=== PATIENT | male | born 1965 | race Caucasian/White ===

== ENCOUNTER 2016-10-31 07:55 | Day surgery (SDC) | payer BC ==
[~2016-10-31 07:55] MED LIST: PROPOFOL INJ 200 MG/20 ML VIAL IV ONE
[2016-10-31 10:43] VITALS: BP 110/77
--- NOTE | 2016-10-31 14:09 | Operative Report ---
Operative Report DATE OF SURGERY: 10/31/16 Operative Report: The risks, benefits and alternatives of the procedure including risks of bleeding, perforation requiring surgery explained to the patient detail and informed consent was obtained. Patient was brought back to the endoscopy suite placed in the left, lateral decubital position. A rectal examination is done which did not reveal any masses, tears or fissures. An Olympus endoscope was inserted into the patient's rectum. It is carefully guided all the way to the cecum. The cecum was identified by the usual anatomical landmarks including the ileocecal valve as well as appendiceal office. Photodocumentation was obtained. Prep was good. The scope was then sequentially pulled back for the rest segments of the colon including the ascending colon, hepatic flexure, transverse colon, splenic flexure, descending colon and finding to the rectosigmoid portions of the colon. Retroflexion maneuver was performed. PREOPERATIVE DIAGNOSIS: Personal history of polyps. POSTOPERATIVE DIAGNOSIS: Noted to have a cecal polyp, status post snare polypectomy. Due to the sessile nature of the polyp is essentially ablated in situ. OPERATION: Colonoscopy with snare polypectomy. SURGEON: BO FONSECA ANESTHESIA: LMAC TISSUE REMOVED OR ALTERED: No tissue retrieved. COMPLICATIONS: None. ESTIMATED BLOOD LOSS: None. INTRAOPERATIVE FINDINGS: No masses, AVMs, diverticulosis noted. mild internal hemorrhoids PROCEDURE: Patient tolerated the procedure well. No immediate postprocedure complications are noted. Patient discharged in good condition. Discharge date 10/31/2016. Discharge diet: Regular. Discharge activity: Regular. 2-3 week follow-up to discuss findings. We will wait on biopsies. 3-5 year surveillance colonoscopy. Patient is instructed to call the office or proceed to the emergency room should there be any further problems or questions.
== END 2016-10-31 10:40 | disposition home or self-care (01) ==
LOC: END 07:55
PROVIDERS: ATTEND Internal Medicine Gastroenterology
PROC: 0D5H8ZZ Destruction of Cecum, Via Natural or Artificial Opening Endoscopic (ICD-10-PCS; principal; 2016-10-31 10:00)
DX: D12.0 Benign neoplasm of cecum (principal); K64.8 Other hemorrhoids; D68.51 Activated protein C resistance; E78.5 Hyperlipidemia, unspecified; Z79.82 Long term (current) use of aspirin; Z85.828 Personal history of other malignant neoplasm of skin; Z79.899 Other long term (current) drug therapy; Z86.718 Personal history of other venous thrombosis and embolism
CPT/HCPCS: 45388; J2704; 810

== ENCOUNTER 2017-08-11 13:40 | Emergency (ER) | payer BC ==
[2017-08-11 13:47] VITALS: BP 132/94
[2017-08-11] MEDS ORDERED: ENOXAPARIN SODIUM INJ 80 MG/0.8 ML DISP.SYRIN SUBCUT SCH (14:15)
[2017-08-11] MEDS ORDERED: APIXABAN 5 MG TABLET PO ONE (14:18)
--- NOTE | 2017-08-11 14:21 | ER Document Report ---
ED General - General Chief Complaint: Foot Pain Stated Complaint: RIGHT FOOT SWELLING Time Seen by Provider: 08/11/17 14:10 Notes: 52-year-old male sent here from [facility] for ultrasound findings of small right popliteal vein thrombus at the vein leaflet valve. Patient states he has had some foot swelling over the past few weeks and was sent for an ultrasound because of this. He does not have any chest pain or shortness of breath. He does have factor V Ley[place] as does his mother takes Eliquis daily. He has a prior history of left upper extremity DVT but no longer takes blood thinners and is only on aspirin. TRAVEL OUTSIDE OF THE [place] IN LAST 30 DAYS: No - Related Data Allergies/Adverse Reactions: No Known Allergies Allergy (Verified 08/11/17 13:44) Past Medical History - Social History Smoking Status: Never Smoker Chew tobacco use (# tins/day): No Drug Abuse: None Family History: None Patient has suicidal ideation: No Patient has homicidal ideation: No - Past Medical History Cardiac Medical History: Reports: Hx Coronary Artery Disease - cholesterol, Hx Hypercholesterolemia Denies: Hx Heart Attack, Hx Hypertension Pulmonary Medical History: Denies: Hx Asthma, Hx Bronchitis, Hx COPD, Hx Pneumonia Neurological Medical History: Denies: Hx Cerebrovascular Accident, Hx Seizures Renal/ Medical History: Denies: Hx Peritoneal Dialysis Musculoskeltal Medical History: Denies Hx Arthritis Past Surgical History: Reports: Hx Orthopedic Surgery - left knee surgery - Immunizations Hx Diphtheria, Pertussis, Tetanus Vaccination: No Review of Systems - Review of Systems Notes: See history of present illness for pertinent positive review of systems; otherwise all review of systems have been reviewed and are negative Physical Exam - Vital signs Vitals: Temp Pulse Resp BP Pulse Ox 98.1 F 83 16 132/94 H 98 08/11/17 13:46 08/11/17 13:46 08/11/17 13:46 08/11/17 13:46 08/11/17 13:46 - Notes Notes: PHYSICAL EXAMINATION: GENERAL: Well-appearing and in no acute distress. HEAD: Atraumatic, normocephalic. EYES: Pupils equal round and reactive to light, extraocular movements intact, sclera anicteric, conjunctiva are normal. ENT: nares patent, oropharynx clear without exudates. Moist mucous membranes. NECK: Normal range of motion, supple without lymphadenopathy LUNGS: CTAB and equal. No wheezes rales or rhonchi. HEART: Regular rate and rhythm without murmurs ABDOMEN: Soft, no tenderness. No facial grimacing/wincing upon palpation. No guarding, no rebound. EXTREMITIES: Normal range of motion, minimal swelling to the top of the right foot distally. No cyanosis. NEUROLOGICAL: Cranial nerves grossly intact. Normal sensory/motor exams. PSYCH: Normal mood, normal affect. SKIN: Warm, Dry, normal turgor, no rashes or lesions noted Course - Re-evaluation Re-evalutation: 08/11/17 14:27 MEDICAL DECISION MAKING: Concern for very small thrombosis in popliteal vein, no CP SOB Pt opts to be on Eliquis as is his mother Will give dose of Lovenox to get him "kick started" and prescription Eliquis Patient denies any history of kidney disease or failure and per chart review last creatinine normal Do not feel he needs to be admitted or that he requires IV anticoagulant Instructed follow-up PCP next day or few Patient understands and agrees to the plan of care - Vital Signs Vital signs: Temp Pulse Resp BP Pulse Ox 98.1 F 83 16 132/94 H 98 08/11/17 13:46 08/11/17 13:46 08/11/17 13:46 08/11/17 13:46 08/11/17 13:46 Discharge - Discharge Clinical Impression: Popliteal vein thrombosis Qualifiers: Laterality: right Qualified Code(s): I82.431 - Acute embolism and thrombosis of right popliteal vein Condition: Good Disposition: HOME, SELF-CARE Additional Instructions: Start taking the Eliquis as instructed: 10 mg twice daily for 7 days followed by 5 mg twice daily. You were seen in the emergency department at [facility]. If you were given any sedating medications, be sure not to operate heavy machinery (example - driving) and be sure you are not too sedated to walk appropriately. Please followup with your primary physician in the next few days for further management/evaluation. Please return to the emergency department for worsening of symptoms or any symptom that you deem to be concerning or life-threatening. Thank you for allowing us to be part of your care. Prescriptions: Apixaban [Eliquis] 5 mg PO BID #[id number] Referrals: NA STEARNS PA-C [PHYSICIAN POACHER WRINGER OPERATOR] - 08/14/17
[2017-08-11] MEDS ORDERED: ENOXAPARIN SODIUM INJ 80 MG/0.8 ML DISP.SYRIN SUBCUT ONE (15:00)
== END 2017-08-11 14:27 | disposition home or self-care (01) ==
LOC: ER 13:40
DX: I82.431 Acute embolism and thrombosis of right popliteal vein (principal); M79.671 Pain in right foot; I25.10 Atherosclerotic heart disease of native coronary artery without angina pectoris; E78.00 Pure hypercholesterolemia, unspecified; D68.51 Activated protein C resistance; Z79.82 Long term (current) use of aspirin
CPT/HCPCS: 99283; 96372; J1650